=== PATIENT | male | born 1955 | race Two or more races ===

== ENCOUNTER 2021-03-27 08:51 | Inpatient (IN) | payer MEDICARE, OTHER ==
[~2021-03-27] VITALS: Ht 195.6 cm; Wt 86.2 kg
[2021-03-27] MEDS ORDERED: LORAZEPAM 2MG/ML CPJ IM STA (09:14)
[2021-03-27] MEDS ORDERED: DIPHENHYDRAMINE 50MG/ML VIAL IV ONE (09:15)
[2021-03-27] MEDS ORDERED: SODIUM CHLORIDE 0.9% 1,000 ML IV ONE (09:15)
[2021-03-27] MEDS ORDERED: HALOPERIDOL LACTATE 5MG/ML VIAL IM ONE (09:15)
[2021-03-27 09:59] LABS: BASOPHILS % 1.9 % (0.0-2.0); EOSINOPHILS % 3.8 % (0.0-5.0); HEMATOCRIT. 50.6 % (42.0-52.0); HEMOGLOBIN. 16.8 g/dL (14.0-18.0); LYMPHOCYTES % 33.4 % (20.0-50.0); MEAN CORPUSCULAR HEMOGLOBIN 29.4 pg (28.0-32.0); MEAN CORPUSCULAR VOLUME 88.8 fL (80.0-94.0); MEAN PLATELET VOLUME 8.2 fl (7.4-10.4); MONOCYTES % 6.9 % (2.0-8.0); PLATELET 232 x1000/uL (130-400); RED CELL DISTRIBUTION WIDTH 13.3 % (11.6-14.6)
[2021-03-27 10:09] LABS: BG BASE EXCESS -1.2 mmol/L (-2.0-2.0); BG CARBOXYHEMOGLOBIN 1.5 % (0.5-1.5); BG DEOXYHEMOGLOBIN 5.1 % (0.0-5.0); BG FRACTION INSPIRED OXYGEN 21; BG HCO3 ACT 22.3 mmol/L (22.0-26.0); BG METHEMOGLOBIN 0.4 % (0.0-1.5); BG OXYGEN SATURATION 94.8 % (92.0-98.5); BG PCO2 34.4 mmHg (35.0-45.0); BG PH 7.429 (7.350-7.450); BG PO2 73.5 mmHg (75.0-100.0); BG SAMPLE SITE RIGHT BRACHIAL; BG TOTAL HEMOGLOBIN 17.2 g/dL (12.0-18.0); BG VENT MODE ROOM AIR
[2021-03-27 10:10] LABS: CHLORIDE 106 mEq/L (98-107)
[2021-03-27] MEDS ORDERED: PIPERACILLIN/TAZ 3.375G PREMIX 50 ML IV ONE (10:30)
[2021-03-27] MEDS ORDERED: VANCOMYCIN 1 G PREMIX 200 ML IV ONE (10:30)
[2021-03-27] MEDS ORDERED: SODIUM CHLORIDE 0.9% 1000ML BAG (SEPSIS BOLUS) IV ONE (10:30)
[2021-03-27 10:33] LABS: CLARITY URINE TURBID (CLEAR); COLOR URINE YELLOW (YELLOW); KETONES URINE NEGATIVE (NEGATIVE); LEUKOCYTE ESTERASE URINE 1+ (NEGATIVE); NITRITE URINE NEGATIVE (NEGATIVE); OCCULT BLOOD URINE 1+ (NEGATIVE); PH URINE 5.5 (4.5-8.0); PROTEIN URINE TRACE (NEGATIVE); SPECIFIC GRAVITY URINE 1.018 (1.005-1.030); UROBILINOGEN URINE 0.2 E.U./dL (0.2-1.0)
[2021-03-27] MEDS ORDERED: IOHEXOL-350 100 ML BOTTLE ONE (12:35)
[2021-03-27] MEDS ORDERED: LEVETIRACETAM 1000MG PREMIX 100 ML IV ONE (13:00)
[2021-03-27] MEDS ORDERED: LORAZEPAM 0.5MG TABLET PO PRN (14:30)
[2021-03-27] MEDS ORDERED: DOCUSATE SODIUM 100MG CAPSULE PO PRN (14:30)
[2021-03-27] MEDS ORDERED: HYDROCODONE/ACETAMINOPHEN 5/325MG TABLET PO PRN (14:30)
[2021-03-27] MEDS ORDERED: CLONIDINE 0.1MG TABLET PO PRN (14:30)
[2021-03-27] MEDS ORDERED: IPRATROPIUM/ALBUTEROL 0.5-3(2.5)MG/3ML NEB HHN PRN (14:30)
[2021-03-27] MEDS ORDERED: ONDANSETRON HCL 4MG/2ML INJ IV PRN (14:30)
[2021-03-27] MEDS ORDERED: ACETAMINOPHEN 325MG TABLET PO PRN ×2 (14:30)
[2021-03-27] MEDS ORDERED: LORAZEPAM 2MG/ML CPJ IV PRN (14:30)
[2021-03-27] MEDS: SODIUM CHLORIDE 0.9% 1,000 ML IV SCH (14:30)
[2021-03-27] MEDS ORDERED: NALOXONE HCL 0.4MG/ML VIAL IV PRN (15:00)
[2021-03-27 22:00] VITALS: BP 130/70
[2021-03-28] MEDS: SODIUM CHLORIDE 0.9% 1,000 ML IV SCH (01:15)
[2021-03-28 07:20] LABS: BASOPHILS % 1.1 % (0.0-2.0); EOSINOPHILS % 2.5 % (0.0-5.0); HEMATOCRIT. 45.1 % (42.0-52.0); HEMOGLOBIN. 14.9 g/dL (14.0-18.0); LYMPHOCYTES % 27.6 % (20.0-50.0); MEAN CORPUSCULAR HEMOGLOBIN 29.7 pg (28.0-32.0); MEAN CORPUSCULAR VOLUME 89.9 fL (80.0-94.0); MEAN PLATELET VOLUME 8.4 fl (7.4-10.4); MONOCYTES % 9.7 % (2.0-8.0); NEUTROPHILS % 59.1 % (40.0-76.0); PLATELET 196 x1000/uL (130-400); RED BLOOD CELL COUNT 5.02 mill/uL (4.7-6.1); RED CELL DISTRIBUTION WIDTH 13.4 % (11.6-14.6)
[2021-03-28 07:31] LABS: CHLORIDE 112 mEq/L (98-107)
[2021-03-28 08:02] VITALS: BP 115/61
[2021-03-28] MEDS ORDERED: DILT-26 MT (09:28)
[2021-03-28] MEDS ORDERED: SERT-112 MT (09:28)
[2021-03-28] MEDS ORDERED: ROSU20TA2 MT (09:28)
[2021-03-28] MEDS ORDERED: DABI150C MT (09:28)
[2021-03-28] MEDS ORDERED: DIGO125T80 MT (09:28)
[2021-03-28 09:36] LABS: *AMPHETAMINES SCREEN URINE NEGATIVE (NEGATIVE); *BARBITURATES SCREEN URINE NEGATIVE (NEGATIVE); *BENZODIAZEPINES SCREEN URINE PRESUMTIVE POSITIVE (NEGATIVE); *COCAINE SCREEN URINE NEGATIVE (NEGATIVE); OPIATES URINE SCREEN NEGATIVE (NEGATIVE)
[2021-03-28 09:37] LABS: CANNABINOID URINE SCREEN PRESUMTIVE POSITIVE (NEGATIVE); METHADONE URINE SCREEN NEGATIVE (NEGATIVE); PHENCYCLIDINE URINE SCREEN NEGATIVE (NEGATIVE)
[2021-03-28 12:13] VITALS: BP 119/58
[2021-03-28] MEDS ORDERED: SERTRALINE HCL 100MG TABLET PO SCH (12:15)
[2021-03-28] MEDS ORDERED: DIGOXIN 125MCG TABLET PO SCH (12:15)
[2021-03-28] MEDS: DILTIAZEM HCL 30MG TABLET PO SCH ×2 (12:20→17:14)
[2021-03-28] MEDS ORDERED: ENOXAPARIN 80MG/0.8ML SYR SUBCUT NR (13:45)
[2021-03-28] MEDS ORDERED: LEVETIRACETAM 500MG PREMIX 100 ML IV SCH (14:00)
[2021-03-28 16:00] VITALS: BP 114/60
[2021-03-28 16:18] LABS: INR 1.2; PROTHROMBIN TIME 12.9 sec (9.6-11.0)
[2021-03-28 18:15] VITALS: BP 114/60
[2021-03-28] MEDS ORDERED: ATORVASTATIN CALCIUM 20MG TABLET PO SCH (21:00)
[2021-03-29] MEDS ORDERED: ENOXAPARIN 100MG/ML SYR SUBCUT SCH (04:00)
== END 2021-03-28 20:47 | disposition short-term general hospital (02) | DRG 92 ==
LOC: ER 08:51 → EDBEDREQ 09:19 → EDBEDREQTM 09:19 → EDBEDREQSVC 09:19 → EDBEDREQTM 13:57 → EDBEDREQ 13:57 → ENRESERV 20:37 → 6WST 22:39
PROVIDERS: ADMIT Internal Medicine; ATTEND Internal Medicine
DX: G92.8 Other toxic encephalopathy (principal); E87.2 Acidosis; R56.9 Unspecified convulsions; E11.9 Type 2 diabetes mellitus without complications; E78.00 Pure hypercholesterolemia, unspecified; E78.5 Hyperlipidemia, unspecified; H91.90 Unspecified hearing loss, unspecified ear; I10 Essential (primary) hypertension; I48.91 Unspecified atrial fibrillation; I25.2 Old myocardial infarction; Z20.822 Contact with and (suspected) exposure to COVID-19
CPT/HCPCS: 36415; 36600; 70496; 70551; 71045; 80048; 80053; 80061; 80162; 80305; 80320; 81003; 82140; 82375; 82607; 82746; 82805; 82962; 83036; 83605; 84145; 84443; 84484; 85025; 87426; 93005; 93306; 99285; C1893; J1200; J1630; J1650; J1953; J2060; J2543; J3370; J7030; Q9967; G0480